=== PATIENT | male | born 1990 | race Caucasian/White ===

== ENCOUNTER 2016-12-29 09:54 | Inpatient (IN) | payer MEDICARE, OTHER, SELFPAY ==
[~2016-12-29] VITALS: Ht 172.7 cm; Wt 62.0 kg
[2016-12-29] MEDS ORDERED: DEPA1TAB3 PO (10:09)
[2016-12-29] MEDS ORDERED: SERO200T PO (10:09)
[2016-12-29 10:41] LABS: MEAN CORPUSCULAR HEMOGLOBIN 30.7 pg (27.0-33.0); MEAN CORPUSCULAR HGB CONC 34.5 g/dl (32.0-36.5); MEAN CORPUSCULAR VOLUME 88.9 fl (80.0-96.0); RED CELL DISTRIBUTION WIDTH 11.6 % (11.5-14.5); WHITE BLOOD COUNT 5.5 10^3/uL (4.0-10.0)
[2016-12-29 10:52] LABS: METHADONE URINE NEGATIVE (NEGATIVE)
[2016-12-29 11:01] LABS: ALBUMIN 4.1 GM/DL (3.2-5.2); ALBUMIN/GLOBULIN RATIO 1.21 (1.00-1.93); ALKALINE PHOSPHATASE 74 U/L (45-117); ALT/SGPT 17 U/L (12-78); ANION GAP 7 MEQ/L (8-16); AST/SGOT 7 U/L (15-37); BILIRUBIN,DIRECT < 0.1 MG/DL (0.0-0.2); BILIRUBIN,TOTAL 0.4 MG/DL (0.2-1.0); BLOOD UREA NITROGEN 7 MG/DL (7-18); CALCIUM LEVEL 9.1 MG/DL (8.5-10.1); CARBON DIOXIDE LEVEL 31 MEQ/L (21-32); CHLORIDE LEVEL 103 MEQ/L (98-107); CREATININE FOR GFR 0.65 MG/DL (0.70-1.30); GLOMERULAR FILTRATION RATE > 60.0 (>60); GLUCOSE, FASTING 91 MG/DL (70-105); POTASSIUM SERUM 4.2 MEQ/L (3.5-5.1); SODIUM LEVEL 141 MEQ/L (136-145); TOTAL PROTEIN 7.5 GM/DL (6.4-8.2)
[2016-12-29] MEDS ORDERED: DEPA500T2 PO (18:10)
[2016-12-29] MEDS ORDERED: LORA1TAB12 PO (18:10)
[2016-12-29 20:52] VITALS: BP 139/77
[2016-12-30] MEDS ORDERED: MAALOX 30 ML SUSP *UDC PO PRN
[2016-12-30] MEDS ORDERED: ACETAMINOPHEN TAB 650MG DOSE (2X325MG) PO PRN
[2016-12-30] MEDS ORDERED: traZODone 50 MG TAB PO PRN
[2016-12-30] MEDS ORDERED: LORazepam 1 MG TAB PO PRN
[2016-12-30] MEDS ORDERED: MOM 30ML SUSPENSION UDC PO PRN
[2016-12-30 06:25] VITALS: BP 127/81
--- NOTE | 2016-12-30 09:09 | HPEPDOC ---
[facility] Medical History & Physical Date of Admission Dec 29, 2016 History and Physical PCP: [facility] ATTENDING: Dr. Krishna Esteves HPI: 26[facility]M [facility], being medically examined today. No acute medical complaints today. Patient states he has had some right lower extremity pain related to a pulled muscle which was aggravated at work. He states this is now resolved. He was not taking any medication for the discomfort. Denies any fevers, chills, weakness, fatigue, [place], CP, SOB, cough, palpitations, abdominal pain, N/V/D or changes in bowel or bladder habits. PMHx: Depression Anxiety PTSD H/O SI Schizophrenia Bipolar disorder PSHX: Denies SOCHX: Resides in: [place], lives with parents. 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 ROS: As noted in HPI, otherwise 11pt ROS of systems reviewed and unremarkable. PE: GEN: 26yoM, appears stated age. Well-nourished, well developed. No acute distress. Alert and oriented x 3. Pleasant, interactive. HEENT: Normocephalic, atraumatic. Pupils are equal, round, and reactive to light. Extraocular movements are intact. No nystagmus appreciated. Sclera are nonicteric. Conjunctiva without injection. Nose midline. Nasal turbinates without bogginess. EACs both patent BL. TMs both visualized and louise with good cone of light, no bulging or erythema. No facial asymmetry. Moist mucous membranes. Dentition fair. Pharynx pink and moist, no cobblestoning. Neck supple , trachea midline. No lymphadenopathy or thyromegaly appreciated. CHEST: Regular rate and rhythm, +S1, +S2 LUNGS: Clear to auscultation bilaterally. No wheezes, rales, or rhonchi. Breathing appears symmetric and easy. Patient is speaking in full sentences. No accessory muscle use. ABD: Round, soft, non-tender, non-distended. +Bowel sounds throughout. No rebound or guarding. No costovertebral angle tenderness. EXT: Pulses 2+ bilaterally dorsalis pedis and radial. No lower extremity edema appreciated. SKIN: [place], dry, warm. Capillary refill <2sec. No rashes. NEURO: Alert and oriented x 3. Cranial nerves III-XII are intact. No focal deficits appreciated. EKG: pending A&P: 26yoM [facility] 1. Psych. Plan per Psychiatry. Obtain baseline EKG to assure the safety of psychiatric medications as they can prolong the QT interval. 2. Abnormal TSH. Recheck TFTs in a.m. 3. Follow up with PCP on discharge. 4. Staff member Phi present throughout exam. Vital Signs Vital Signs Date Time Temp Pulse Resp B/P (MAP) Pulse Ox O2 Delivery O2 Flow Rate FiO2 12/30/16 06:25 98.4 83 16 127/81 (96) 12/29/16 20:52 99 Room Air Laboratory Data Labs 24H Laboratory Tests 2 12/29/16 10:17: Urine Amphetamines Screen NEGATIVE, Urine Benzodiazepines Screen NEGATIVE, Urine Opiates Screen NEGATIVE, Urine Methadone Screen NEGATIVE, Urine Barbiturates Screen NEGATIVE, Urine Phencyclidine Screen NEGATIVE, Urine Cocaine Metabolite Screen NEGATIVE, Urine Cannabinoids Screen NEGATIVE 12/29/16 10:21: Anion Gap 7L, Glomerular Filtration Rate > 60.0, Calcium Level 9.1, Aspartate Amino Transf (AST/SGOT) 7L, Alanine Aminotransferase (ALT/SGPT) 17, Alkaline Phosphatase 74, Total Bilirubin 0.4, Direct Bilirubin < 0.1, Total Protein 7.5, Albumin 4.1, Albumin/Globulin Ratio 1.21, Thyroid Stimulating Hormone (TSH) 3.750H, Salicylates Level < 1.7L, Acetaminophen Level < 2.0L, Ethyl Alcohol Level < 0.003 CBC/BMP Laboratory Tests 12/29/16 10:21 Red Blood Count 5.15, Mean Corpuscular Volume 88.9, Mean Corpuscular Hemoglobin 30.7, Mean Corpuscular Hemoglobin Concent 34.5, Red Cell Distribution Width 11.6 Home Medications Scheduled Divalproex Sodium (Depakote ER) 500 Mg Tab, 500 MG PO QHS Quetiapine Fumerate (Seroquel) 200 Mg Tab, 200 MG PO QHS Scheduled PRN Lorazepam (Lorazepam) 1 Mg Tab, 1 MG PO TID PRN for ANXIETY Allergies Coded Allergies: No Known Allergies (Unverified , 12/29/16) Jaci Coyne Dec 30, 2016 09:09
[2016-12-30 12:00] VITALS: BP 127/75
[2016-12-30 18:00] VITALS: BP 114/70
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
--- NOTE | 2016-12-30 21:17 | ECGEPIP ---
Stationary ECG Study [facility] Test Date: 2016-12-30 Pat Name: CHUY YAN Department: Room: [place] [address] Gender: M Tram Operator: SAFIA : 1990 Requested By: Jaci Coyne Order Number: [id number] Reading MD: Michele Morgan Measurements Intervals [place] Rate: 76 P: 42 IL: 114 QRS: 82 QRSD: 94 T: 56 QT: 351 QTc: 396 Interpretive Statements SINUS RHYTHM WITH SHORT IL INTERVAL MINIMAL ST ELEVATION CONSISTENT WITH EARLY REPOLARIZATION NO PRIOR TRACING IN THE SYSTEM Electronically Signed On 12-30-2016 21:17:29 EDT by Michele Morgan
[2016-12-30 21:50] VITALS: BP 112/73
[2016-12-30] MEDS: DIVALPROEX 500MG *ER* TAB PO SCH (21:50)
[2016-12-30] MEDS: QUEtiapine FUMARATE 200 MG TAB PO SCH (21:50)
[2016-12-31 07:07] VITALS: BP 118/75
[2016-12-31 07:28] LABS: THYROXINE (T4) 5.9 UG/DL (4.5-12.0)
[2016-12-31 17:36] VITALS: BP 109/66
[2016-12-31] MEDS: DIVALPROEX 500MG *ER* TAB PO SCH (21:54)
[2016-12-31] MEDS: QUEtiapine FUMARATE 200 MG TAB PO SCH (21:54)
--- NOTE | 2016-12-31 22:07 | MHIPNPDOC ---
[facility] Progress Note Progress Note DATE OF SERVICE: 12/31/16 HISTORY: Pt. says he feels frustrated about being hospitalized, once again he says he wwas never serious about shooting anybody at [facility], it was something he should have never said but it was because he was frustrated and tired. This business writer explained to patient that he was let go from his job and that his employer wants him to see a counselor before they place him in a different position. Pt. explained that he did not feel as if counseling benefited him in the past. d. VITAL SIGNS: See below. NEW TEST RESULTS: N/A CURRENT MEDICATIONS: See below. MENTAL STATUS EXAMINATION: Patient is a 26-year old male, who is alert, cooperative, pleasant, calm, dressed in hospital clothes, with poor eye contact, good hygiene and grooming. Speech: Is Normal in rate, tone and volume Language skills are Fair Thought processes including: Intact Thought content: perseveres about not feeling that therapy has been useful for him because they have changed his therapists and he feels other therapists were not good. He feels he doesn't need a therapist, he needs to be n contact with God through prayer. Abstract reasoning, and computation: Not assessed at this time Description of associations: Good Description of abnormal or psychotic thoughts: Denies A/V hallucinations, denies thought delusions, denies SI/HI Judgment: Poor Insight: Poor Orientation: oriented times 3 Recent and remote memory: Intact Attention span and concentration: Good Language: Normal Fund of knowledge: Not assessed at this time Mood: Frustrated Affect: Slightly irritable DIAGNOSES: 1. Adjustment disorder with mixed emotions 2. Bipolar disorder by history 3. PTSD by history ASSESSMENT:patient is not insightful, he still doesn't see why his boss became anxious about his homicidal statements. He was reminded that in this country there have been massive shootings in schools and universities, therefore he must learn how to control his emotions. he doesn't agree on going to therapy to better himself because he feels it never helped him in the past but this business writer explained to him this might be a condition for him to be able to get another job. he needs to continue attending groups to learn coping skills and gain insight into his problems. MANAGEMENT PLAN: Will make sure he doesn't become depressed after learning he lost his job. Will observe him. TIME SPENT: 30 minutes. Vital Signs Vital Signs Date Time Temp Pulse Resp B/P (MAP) Pulse Ox O2 Delivery O2 Flow Rate FiO2 12/31/16 17:36 97.1 78 16 109/66 (80) 12/31/16 07:07 Room Air 12/29/16 20:52 99 Laboratory Data 24H Labs Laboratory Tests 2 12/31/16 06:25: Thyroid Stimulating Hormone (TSH) 5.880H, Free Thyroxine Index 1.9, Thyroxine ( T4) 5.9, Triiodothyronine (T3) Uptake 33 Current Medications Current Medications Acetaminophen (Tylenol Tab) 650 mg Q6HP PRN PO HEADACHE or DISCOMFORT; Start at 00:00; Stop 01/29/17 at 00:00 Al Hydrox/Mg Hydrox/Simethicone (Mylanta) 30 ml Q4HP PRN PO HEARTBURN/ INDIGESTION; Start 12/30/16 at 00:00; Stop 01/29/17 at 00:00 Divalproex Sodium (Depakote Er) 500 mg QHS PO Last administered on 12/30/16 21 :50; Start 12/30/16 at 21:00; Stop 01/29/17 at 20:59 Home Med (Med Rec Complete!) ASDIRECTED XX ; Start 12/29/16 at 18:15; Stop at 18:15; Status DC Lorazepam (Ativan) 1 mg TIDP PRN PO ANXIETY; Start 12/30/16 at 00:00; Stop 01/06/17 at 00:00 Magnesium Hydroxide (Milk Of Magnesia) 30 ml DAILYPRN PRN PO CONSTIPATION; Start 12/30/16 at 00:00; Stop 01/29/17 at 00:00 Quetiapine Fumarate (SEROquel) 200 mg QHS PO Last administered on 12/30/16 21: 50; Start 12/30/16 at 21:00; Stop 01/29/17 at 20:59 Trazodone HCl (Desyrel) 50 mg QHSP PRN PO INSOMNIA; Start 12/30/16 at 00:00; Stop 01/29/17 at 00:00 Allergies Coded Allergies: No Known Allergies (Unverified , 12/29/16) ZARA DON MD Dec 31, 2016 22:07
[2017-01-01 06:21] VITALS: BP 118/75
--- NOTE | 2017-01-01 14:32 | MHIPNPDOC ---
[facility] Progress Note Progress Note DATE OF SERVICE: 01/01/17 HISTORY: Patient says he was expecting to be discharged today, he wanted to go to his Jehovah witnesses meeting. This signwriter discussed with him the reasons that I had to keep him more more day because I wanted to see if he became depressed realizing he has lost his job and because I needed to observe him due to the homicidal statements that brought him into the hospital. He agreed to stay for another 24 hours. VITAL SIGNS: See below. NEW TEST RESULTS: N/A CURRENT MEDICATIONS: See below. MENTAL STATUS EXAMINATION: Patient is a 26-year old male, who is alert, calm, pleasant, dressed in hospital clothes, cooperative, with fair eye contact and good hygiene and grooming Speech: Is Normal in rate, tone and volume Language skills are good Thought processes including: Intact Thought content: Focused on his discharge Abstract reasoning, and computation: Not assessed at this time Description of associations: Good Description of abnormal or psychotic thoughts: Denies A/V hallucinations, denies thought delusions, denies SI/HI Judgment: Improving Insight: Improving Orientation: oriented times 3 Recent and remote memory: Intact Attention span and concentration: Good Language: Normal Fund of knowledge: Not assessed at this time Mood: Euthymic Affect: Full range, reactive, appropriate, congruent with mood DIAGNOSES: 1. Adjustment disorder with mixed emotions 2. Bipolar disorder by history 3. PTSD by history ASSESSMENT: Patient is a little more insightful and he is not in danger to self or others. He is not suicidal and he is not homicidal. He is not responding to internal stimuli, he is not psychotic. Patient will be able to go home tomorrow and he understands that he will have to go to therapy frequently in order to get a job again from [employer] TIME SPENT: 30 minutes. Vital Signs Vital Signs Date Time Temp Pulse Resp B/P (MAP) Pulse Ox O2 Delivery O2 Flow Rate FiO2 01/01/17 06:21 98.3 77 18 118/75 (89) Room Air 12/29/16 20:52 99 Current Medications Current Medications Acetaminophen (Tylenol Tab) 650 mg Q6HP PRN PO HEADACHE or DISCOMFORT; Start at 00:00; Stop 01/29/17 at 00:00 Al Hydrox/Mg Hydrox/Simethicone (Mylanta) 30 ml Q4HP PRN PO HEARTBURN/ INDIGESTION; Start 12/30/16 at 00:00; Stop 01/29/17 at 00:00 Divalproex Sodium (Depakote Er) 500 mg QHS PO Last administered on 12/31/16 21 :54; Start 12/30/16 at 21:00; Stop 01/29/17 at 20:59 Home Med (Med Rec Complete!) ASDIRECTED XX ; Start 12/29/16 at 18:15; Stop at 18:15; Status DC Lorazepam (Ativan) 1 mg TIDP PRN PO ANXIETY; Start 12/30/16 at 00:00; Stop 01/06/17 at 00:00 Magnesium Hydroxide (Milk Of Magnesia) 30 ml DAILYPRN PRN PO CONSTIPATION; Start 12/30/16 at 00:00; Stop 01/29/17 at 00:00 Quetiapine Fumarate (SEROquel) 200 mg QHS PO Last administered on 12/31/16 21: 54; Start 12/30/16 at 21:00; Stop 01/29/17 at 20:59 Trazodone HCl (Desyrel) 50 mg QHSP PRN PO INSOMNIA; Start 12/30/16 at 00:00; Stop 01/29/17 at 00:00 Allergies Coded Allergies: No Known Allergies (Unverified , 12/29/16) ZARA DON MD Jan 01, 2017 14:31
[2017-01-01 18:00] VITALS: BP 111/58
[2017-01-01] MEDS: QUEtiapine FUMARATE 200 MG TAB PO SCH (21:44)
[2017-01-01] MEDS: DIVALPROEX 500MG *ER* TAB PO SCH (21:44)
[2017-01-02 06:00] VITALS: BP 121/70
[2017-01-02] MEDS ORDERED: TRAZO50TA PO (10:30)
--- NOTE | 2017-01-02 19:38 | MHDSPDOC ---
[facility] Discharge Summary Discharge Summary DATE OF ADMISSION: Dec 29, 2016 at 17:45 DATE OF DISCHARGE: Jan 02, 2017 at 12:30 DISCHARGE DIAGNOSES: 1. Adjustment disorder with mixed emotions 2. Bipolar disorder by history 3. PTSD by history REASON FOR ADMISSION: CHIEF COMPLAINT: Patient reports he was brought by the police to the ED because he made a homicidal statement on 12/27/16 while he was working at [employer] and his boss called the police and the police brought him almost 48 hours later to the ED HISTORY OF THE PRESENT ILLNESS: Patient is a 26-year-old male, who reports he said something he should have never said on Thursday night because he has been under a lot of pressure, they are short of staff at his workplace and 5 people had to do the job of 8 people. He was frustrated when he said he would shoot people at [facility] [facility]. He admits he can be overtly emotional,, mostly because he has bipolar disorder but he never intended to kill anyone and he is not trying to kill anyone. CONSULTANTS INVOLVED: None TREATMENT AND PROGRESS ON THE UNIT : . HOSPITAL COURSE: DISCHARGE ASSESSMENT: MENTAL STATUS EXAMINATION ON DISCHARGE: Patient is a 26-year old male, who is alert, calm, pleasant, dressed in hospital clothes, cooperative, with fair eye contact and good hygiene and grooming Speech: Spontaneous and fluid Language skills are good Thought processes including: Intact, goal oriented Thought content: Focused on his discharge, going home, going to his Jehovah's Witnesses meetings. Abstract reasoning, and computation: Not assessed at this time Description of associations: Good Description of abnormal or psychotic thoughts: Denies A/V hallucinations, denies thought delusions, denies SI/HI Judgment: Improving Insight: Improving Orientation: oriented times 3 Recent and remote memory: Intact Attention span and concentration: Good Language: Normal Fund of knowledge: Not assessed at this time Mood: Euthymic Affect: Full range, reactive, appropriate, congruent with mood MEDICATIONS ON DISCHARGE: Divalproex Sodium (Depakote Er) 500 mg QHS PO as a mood stabilizer Lorazepam (Ativan) 1 mg TIDP PRN PO ANXIETY Quetiapine Fumarate (SEROquel) 200 mg QHS PO as mood stabilizer Trazodone HCl (Desyrel) 50 mg QHSP PRN PO INSOMNIA; PLAN/FOLLOWUP ARRANGEMENTS: * Mental Health Appt 1 * Mental Health DR. LAM * Established With This Provider Yes * Therapist DR. LAM * Date Jan 15, 2017 * Time 10:30 * * Additional information [facility] Follow Up Care Education Label * Medical * Medical Follow Up [facility] W/ DR. SAHNI * Established With This Provider Yes * Date Jan 15, 2017 * Time 14:15 * * Additional information [address] [facility] Follow Up Care Education Label * Mental Health Appt 2 * Mental Health [facility] * Address of Clinic or Practice [address] [place] [id number] * Follow Up Care Education Label * Mental Health Appt 2 * Mental [facility] * Established With This Provider No * Therapist AUSTIN * Date Jan 06, 2017 * Time 11:00 * * Additional information [facility] Follow Up Care Education Label * Mental Health Appt 3 * Mental [facility] * Established With This Provider No * Therapist QAMAR * Date Jan 29, 2017 * Time 14:00 The amount of time spent in the coordination of care for this patient was approximately 30 minutes. Vital Signs/I&Os Vital Signs Date Time Temp Pulse Resp B/P (MAP) Pulse Ox O2 Delivery O2 Flow Rate FiO2 01/02/17 06:00 97.7 83 18 121/70 (87) 01/01/17 06:21 Room Air 12/29/16 20:52 99 Medications Scheduled Divalproex Sodium (Depakote ER) 500 Mg Tab, 500 MG PO QHS, (Reported) Quetiapine Fumerate (Seroquel) 200 Mg Tab, 200 MG PO QHS, (Reported) Scheduled PRN Lorazepam (Lorazepam) 1 Mg Tab, 1 MG PO TID PRN for ANXIETY, (Reported) Trazodone HCl (Trazodone HCl) 50 Mg Tab, 50 MG PO QHSP PRN for INSOMNIA, #10 Allergies Coded Allergies: No Known Allergies (Unverified , 12/29/16) ZARA DON MD Jan 02, 2017 19:38
== END 2017-01-02 12:30 | disposition home or self-care (01) | DRG 755 ==
LOC: M ED 09:54 → EDBD 09:54 → M ED INP 17:45 → M PSY 20:50
PROVIDERS: ADMIT Psychiatry & Neurology Psychiatry; ATTEND Psychiatry & Neurology Psychiatry
DX: F43.23 Adjustment disorder with mixed anxiety and depressed mood (principal); F31.9 Bipolar disorder, unspecified; F43.10 Post-traumatic stress disorder, unspecified; Z79.899 Other long term (current) drug therapy; R94.6 Abnormal results of thyroid function studies

== ENCOUNTER → 2017-03-23 | Outpatient (CLI) | payer OTHER ==
[~2017-03-23] MED LIST: DEPA1TAB3 PO; DEPA500T2 PO; LORA1TAB12 PO; SERO200T PO; TRAZO50TA PO
[2017-03-23 20:25] LABS: ALBUMIN 4.2 GM/DL (3.2-5.2); ALBUMIN/GLOBULIN RATIO 1.17 (1.00-1.93); ALKALINE PHOSPHATASE 74 U/L (45-117); ALT/SGPT 14 U/L (12-78); ANION GAP 8 MEQ/L (8-16); AST/SGOT 10 U/L (7-37); BILIRUBIN,TOTAL 0.2 MG/DL (0.2-1.0); BLOOD UREA NITROGEN 9 MG/DL (7-18); CALCIUM LEVEL 8.4 MG/DL (8.5-10.1); CARBON DIOXIDE LEVEL 29 MEQ/L (21-32); CHLORIDE LEVEL 104 MEQ/L (98-107); CHOLESTEROL LEVEL 152 MG/DL (<200); CREATININE FOR GFR 0.64 MG/DL (0.70-1.30); FREE T4 0.85 NG/DL (0.76-1.46); GLOMERULAR FILTRATION RATE > 60.0 (>60); GLUCOSE, FASTING 81 MG/DL (70-105); POTASSIUM SERUM 4.2 MEQ/L (3.5-5.1); SODIUM LEVEL 141 MEQ/L (136-145); TOTAL PROTEIN 7.8 GM/DL (6.4-8.2); TRIGLYCERIDES LEVEL 62 MG/DL (<150)
== END ==
LOC: M WUC 16:52
PROVIDERS: ATTEND Family Medicine Addiction Medicine
DX: E03.8 Other specified hypothyroidism (principal)